=== PATIENT | male | born 1980 | race Caucasian/White ===

== ENCOUNTER 2020-05-29 15:09 | Outpatient (CLI) | payer OTHER, SELFPAY ==
--- NOTE | ~2020-05-29 | CT_ITS ---
EXAMINATION: CT BRAIN W/O DATE: 05/29/2020 15:23 INDICATION: Headache and dizziness TECHNIQUE: Computed tomography (CT) of the head was performed without intravenous contrast. The dose- length product was 674.51 mGy-cm. The mA was adjusted according to patient size. Iterative reconstruc tion technique was employed. COMPARISON: No prior studies for comparison. FINDINGS: Normal brain parenchymal volume for age. Normal sosa-white differentiation. No acute intrac ranial hemorrhage, infarction, mass or mass effect. No ventriculomegaly or midline shift. Midline sagittal images demonstrate a normal corpus callosum, c raniovertebral junction and sella turcica. Basilar cisterns are patent. Paranasal sinuses and mastoids are pneumatized. No depressed skull fractures. IMPRESSION: 1. No acute intracranial abnormality. Reviewed, dictated and finalized at location B.
== END 2020-05-29 15:10 ==
PROVIDERS: PCP Internal Medicine; Visit Provider Internal Medicine
DX: R51 Headache (principal)
CPT/HCPCS: 70450

== ENCOUNTER 2022-04-02 08:01 | Emergency (ER) | payer OTHER, SELFPAY ==
[2022-04-02 08:08] VITALS: BP 155/80; PULSE 81; RESP 16; TEMP 36.6; O2SAT 98
--- NOTE | 2022-04-02 08:09 | ED.URI ---
HPI - URI/Sore Throat General Chief Complaint: Upper Respiratory Infection Stated Complaint: sore throat Time Seen by Provider: 04/02/22 08:10 Source: patient Mode of arrival: ambulatory Limitations: no limitations History of Present Illness HPI Narrative: Mr. Lazo is a 41-year-old male patient presenting to the clinic today with complaints of sore throat x2 to 3 days with. He reports no fever or chills. He denies any known exposure to anyone with strep, COVID, or influenza. He denies any cough or nasal discharge. Reports that he wants to be ruled out for strep because he is going to a softball clinic this weekend. MD elicited complaint: sore throat and nasal congestion Related Data Home Medications Medication Instructions Recorded Confirmed fluticasone propion-salmeterol 50 inh INHALATION BID 04/02/22 04/02/22 [Advair Diskus] Allergies Allergy/AdvReac Type Severity Reaction Status Date / Time Penicillins Allergy Severe RASH, Unverified 04/02/22 08:12 THROAT SWELLING Review of Systems Review of Systems: Pertinent positives per HPI. Patient denies any fever, chills, rash, headache, visual changes, dizziness, cough, shortness of breath, chest pain, palpitations, nausea, vomiting, diarrhea, constipation, abdominal pain, or any urinary issues. PMFSH Comments At the time of my signature, I reviewed and agree with the nursing past medical, surgical, social, and family history. There is no relevant family history pertinent to the patient complaint. Exam Narrative: General: Well-developed, well nourished, in no apparent distress Head: Normocephalic, atraumatic Eyes: Pupils equally round and reactive to light bilaterally, EOM intact, sclera and conjunctive clear, no discharge, lids normal Ears: TMs intact and clear, ear canals ceruminous, no drainage, grossly hearing normal. Nose: Nares patent, no discharge, no inflammation, no sinus tenderness. Mouth: Oral pharynx without lesions or masses, good dentition, MMM. Oropharynx mildly red Neck: Supple, trachea midline, no enlargement of anterior or posterior cervical nodes, no thyroid masses or goiter palpable. Cardio: Regular rate and rhythm, s1 and s2 normal, no murmur appreciated. Resp: Clear to auscultation bilaterally, no rhonchi, rales, wheezing or rubs Course Course Emergency Course: Portions of this record may have been created with voice recognition software. Level of Care: Express Care Visit Vital Signs Vital signs: Vital Signs Temperature 36.6 C 04/02/22 08:08 Pulse Rate 81 04/02/22 08:08 Respiratory Rate 16 04/02/22 08:08 Blood Pressure 155/80 H 04/02/22 08:08 Pulse Oximetry 98 04/02/22 08:08 Temperature 36.6 C 04/02/22 08:08 Pulse Rate 81 04/02/22 08:08 Respiratory Rate 16 04/02/22 08:08 Blood Pressure 155/80 H 04/02/22 08:08 Pulse Oximetry 98 04/02/22 08:08 Vital signs reviewed MDM - URI/Sore Throat MDM Narrative Medical decision making narrative: At the time of visit patient is resting comfortably on the exam table. He reports a sore throat without fever or chills. No runny nose or cough. Strep screen was obtained and was negative in the clinic. We will send for culture. Supportive measures were discussed with patient he voiced understanding of discharge instructions and agrees to treatment plan. Differential Diagnosis Differential diagnosis: Likely upper respiratory infection, sinusitis, viral infection, influenza and pharyngitis Discharge Plan Discharge Clinical Impression: Pharyngitis Qualifiers: Pharyngitis/tonsillitis etiology: unspecified etiology Qualified Code(s): J02.9 - Acute pharyngitis, unspecified Patient Disposition: Home, Self-Care Condition: Stable Instructions: Pharyngitis (ED) Additional Instructions: Strep screen was negative in the clinic. We will send for culture Increase fluids and stay well hydrated Tylenol/motrin for pain/fever Flonase and O
== END 2022-04-02 08:24 | disposition home or self-care (01) ==
PROVIDERS: Emergency Provider Nurse Practitioner Family; PCP Internal Medicine
DX: J02.9 Acute pharyngitis, unspecified (principal); J45.909 Unspecified asthma, uncomplicated
CPT/HCPCS: 87081; 87880; 99203; G0463